=== PATIENT | female | born 1940 | race Caucasian/White ===

== ENCOUNTER 2024-06-27 17:48 | Emergency (ER) | payer MEDICARE, BC, SELFPAY ==
[2024-06-27 17:54] VITALS: BP 131/83; PULSE 90; RESP 18; TEMP 36.9; O2SAT 94; BMI 28.7
[2024-06-27 18:50] LABS: PCR FLU A Negative PCR FLU A (Negative); PCR FLU B Negative PCR FLU B (Negative); PCR RSV Negative PCR RSV (Negative); SARS PCR* Negative SARS-CoV-2 (Negative)
--- NOTE | 2024-06-27 19:14 | ED.GENADULT ---
HPI - General Adult General Chief complaint: Cough Stated complaint: Bronchitis concern Time Seen by Provider: 06/27/24 19:08 History of Present Illness HPI narrative: This 83-year-old female comes in with family member reporting a cough for the past week. She does not have any fever or shortness of breath. She does report a runny nose and has had some lightheadedness at times. She does not report any chest pain. She has not had any fevers. Related Data Home Medications ?Medication ?Instructions ?Recorded ?Confirmed insulin glargine 100 unit/mL (3 10 unit subcut QPM 06/27/24 06/27/24 mL) subcutaneous pen (Lantus Solostar U-100 Insulin) levothyroxine 100 mcg tablet mcg DAILY 06/27/24 Allergies Allergy/AdvReac Type Severity Reaction Status Date / Time No Known Drug Allergies Allergy Verified 06/27/24 18:03 Review of Systems Status of ROS: Reports: 10 or more systems reviewed and unremarkable except as noted in History and below Narrative: Constitutional: No fevers, no weight gain or loss. Eyes: No discharge. No vision changes. HENT: No congestion, no sore throat, no ear pain. Rhinorrhea. Cardiovascular: No chest pain, no palpitations. Respiratory: No shortness of breath, no wheezes. Cough. Gastrointestinal: No abdominal pain, no vomiting, no diarrhea. Genitourinary: No dysuria, no hematuria. Musculoskeletal: Normal range of motion. Skin: No rashes, no pruritis. Neurological: No dizziness, weakness, sensory change, speech change. Endo/Heme/Allergies: No bruising or bleeding. No polydipsia. Pysch: no suicidality, no anxiety, no insomnia. All other systems reviewed and are negative. Exam Narrative: Exam Narrative: Constitutional: Well-developed, well-nourished, no acute distress. HEENT: Normocephalic, atraumatic. Neck: Normal range of motion. Nontender. Supple. Heart: Regular. No murmurs. Normal rate. Intact distal pulses. Lungs: Clear to auscultation. No chest discomfort. No wheezes, rhonchi, or rales. Abdomen: Normal bowel sounds. Nontender. No rebound tenderness. Genitalia: Deferred. Back: No midline tenderness. Normal range of motion. Extremities: Normal range of motion. No injury. Skin: Intact. No rash. Warm. No erythema or pallor. Neurologic: No altered sensation. No weakness. Alert and oriented. Psychiatric: No suicidality. No anxiety or depression. No insomnia. Nursing notes and vitals signs are reviewed. Const: Vital Signs, click to edit/add: Vital Signs - 24 hr 06/27/24 17:54 Temperature 98.5 F Pulse Rate [Right Pulse Oximeter] 90 Respiratory Rate 18 Blood Pressure [Ri ght Upper Arm] 131/83 Pulse Oximetry 94 Oxygen Delivery Me thod Room Air Course Vital Signs Vital signs: Initial Vital Signs Temperature 98.5 F 06/27/24 17:54 Temperature Source Temporal Artery Scan 06/27/24 17:54 Pulse Rate 90 06/27/24 17:54 Pulse Rhythm Regular 06/27/24 17:54 Pulse Strength 3+ Normal 06/27/24 17:54 Respiratory Rate 18 06/27/24 17:54 Blood Pressure 131/83 06/27/24 17:54 Blood Pressure Mean 99 06/27/24 17:54 Blood Pressure Position Sitting 06/27/24 17:54 Pulse Oximetry 94 06/27/24 17:54 Oxygen Delivery Method Room Air 06/27/24 17:54 Vital Signs Temperature 98.5 F 06/27/24 17:54 Pulse Rate 90 06/27/24 17:54 Respiratory Rate 18 06/27/24 17:54 Blood Pressure 131/83 06/27/24 17:54 Pulse Oximetry 94 06/27/24 17:54 Oxygen Delivery Method Room Air 06/27/24 17:54 Temperature 98.5 F 06/27/24 17:54 Pulse Rate 90 06/27/24 17:54 Respiratory Rate 18 06/27/24 17:54 Blood Pressure 131/83 06/27/24 17:54 Pulse Oximetry 94 06/27/24 17:54 Oxygen Delivery Method Room Air 06/27/24 17:54 Medical Decision Making MDM Narrative Medical decision making narrative: This patient comes in reporting an upper respiratory infection that started 3 days ago. She states that she is now feeling better. Nasal pharyngeal swab returns negative for viruses tested and a chest x-ray is also of showing no acute pulmonary process. The patient is reassured with this and declined any further treatment. She will use [id number] medicines as needed Lab Data Labs: Lab Results 06/27/24 Range/Units 18:07 SARS-CoV-2 (PCR) Negative SARS-CoV-2 (Negative) Influenza Type A (PCR) Negative PCR FLU A (Negative) Influenza Type B (PCR) Negative PCR FLU B (Negative) RSV (PCR) Negative PCR RSV (Negative) Imaging Data Chest x-ray: Radiologist's impression: No evidence of an acute pulmonary process. Discharge Plan Discharge Clinical Impression: Acute upper respiratory infection Patient Disposition: Home, Self-Care Condition: Stable Additional Instructions: Use [id number] medicines as needed and directed. Follow up with MD or return if worsening symptoms occur. Prescriptions: No Action levothyroxine 100 mcg tablet DAILY insulin glargine [Lantus Solostar U-100 Insulin] 100 unit/mL (3 mL) insulin pen 10 unit subcut QPM Follow Up/Referrals: ALINE GRANADOS DO [Primary Care Provider] - Stand Alone Forms: MyHealth Info Instructions
== END 2024-06-27 20:13 | disposition home or self-care (01) ==
PROVIDERS: Emergency Provider Emergency Medicine Emergency Medical Services; PCP Student in an Organized Health Care Education/Training Program
DX: J06.9 Acute upper respiratory infection, unspecified (principal)
CPT/HCPCS: 71046; 87631; 99283; 99284